=== PATIENT | male | born 1990 | race Caucasian/White ===

== ENCOUNTER 2017-08-28 09:32 | Day surgery (SDC) | payer MEDICARE, MEDICAID ==
[2017-08-28 10:15] VITALS: BP 132/69; PULSE 78; RESP 20; TEMP 98; O2SAT 96
[2017-08-28 10:55] VITALS: BP 129/71; PULSE 79; RESP 20; TEMP 98; O2SAT 96
[2017-08-28] MEDS ORDERED: LIDOCAINE HCL 1% 20 ML VIAL ONE (11:01)
[2017-08-28 11:10] VITALS: BP 118/69; PULSE 78; RESP 20; O2SAT 94
--- NOTE | 2017-08-28 15:41 | RADRPT ---
EXAM DATE/TIME: 08/28/2017 10:09 [place] COMPARISON: No previous studies available for comparison. INDICATIONS : Right thyroid nodule. MEDICAL HISTORY : Hypertension. Hepatitis C. Bi-Polar. SURGICAL HISTORY : Cyst removal from left leg. ENCOUNTER: Initial ACUITY: > 1 yr PAIN SCORE: 0/10 LOCATION: Right neck ORGAN: Right thyroid lobe SPECIMENS: Three fine needle aspirate(s) submitted for pathologic evaluation. DEVICE: 22 gauge needle Post procedure scanning reveals no hematoma or other complication. The possibility does exist that the tissue obtained will be non-diagnostic. If the sample is non-zuly gnostic a repeat biopsy or surgical biopsy may need to be performed. TECHNIQUE: 1. Ultrasound guidance for needle biopsy. 2. Needle biopsy. The risks, benefits and alternatives to the procedure were explained and verbal and written consent w as obtained. The site was prepped in sterile fashion. Full sterile technique was used, including ca p, mask, sterile gloves and gown and a large sterile sheet. Hand hygiene and 2% chlorhexidine and/or betadine/alcohol prep was utilized per protocol for cutaneous antisepsis. The skin and subcutaneous tissues were infiltrated with local anesthetic solution. Sterile gel and sterile probe cover were u tilized for ultrasound guidance. With the patient on the ultrasound table, images were obtained. A needle was advanced into the identified target and the number of specimens as above obtained and jones bmitted for pathologic evaluation. The patient tolerated the procedure well and left the ultrasound suite in stable condition. CONCLUSION: Uncomplicated ultrasound guided needle biopsy of subtle nodule in the right mid posterior lobe. Nimesh Gomez MD on August 28, 2017 at 15:40 Board Certified Radiologist. This report was verified electronically.
== END 2017-08-28 11:15 | disposition home or self-care (01) ==
LOC: HRAD 09:32 → HRIP 09:36 → HRAD 11:15
PROVIDERS: ATTEND Specialist
DX: E04.9 Nontoxic goiter, unspecified (principal); I10 Essential (primary) hypertension; B19.20 Unspecified viral hepatitis C without hepatic coma
CPT/HCPCS: 10022; 76942; 88172; 88173